=== PATIENT | male | born 1970 | race Two or more races ===

== ENCOUNTER 2021-05-03 03:50 | Emergency (ER) | payer OTHER ==
[~2021-05-03] VITALS: Ht 177.8 cm; Wt 74.8 kg
[2021-05-03] MEDS ORDERED: CEPHALEXIN500 MG PO (05:13)
[2021-05-03] MEDS ORDERED: KETO10TA2 PO (05:13)
== END 2021-05-03 05:23 | disposition home or self-care (01) ==
LOC: ER 03:50
DX: S00.81XA Abrasion of other part of head, initial encounter (principal); S00.83XA Contusion of other part of head, initial encounter; Y93.72 Activity, wrestling; Y92.89 Other specified places as the place of occurrence of the external cause; Y99.8 Other external cause status; R22.0 Localized swelling, mass and lump, head